=== PATIENT | female | born 1975 | race Caucasian/White ===

== ENCOUNTER 2019-05-30 23:24 | Emergency (ER) | payer BC ==
[~2019-05-30] VITALS: Ht 160 cm; Wt 95.3 kg
[2019-05-30 23:59] VITALS: Ht 160 cm; Wt 95.3 kg
[2019-05-31 01:33] LABS: BASOPHIL % 0.3 % (0-2); RED CELL DISTRIBUTION WIDTH 13.6 % (11.5-14.5)
[2019-05-31 01:37] LABS: PLATELET COUNT 412 x10^3mcL (130-400)
[2019-05-31 01:55] LABS: CARBON DIOXIDE 24.5 mmol/L (21-32); CHLORIDE SERUM 103 mmol/L (98-107); CREATININE SERUM 0.7 mg/dL (0.6-1.0); GFR1 > 60 mL/min; GLUCOSE SERUM 110 mg/dL (74-106); POTASSIUM SERUM 3.7 mmol/L (3.5-5.1); SODIUM SERUM 139 mmol/L (136-145)
[2019-05-31 01:59] LABS: ALBUMIN 3.9 g/dL (3.4-5.0); ALKALINE PHOSPHATASE 116 U/L (46-116); ALT/SGPT 45 U/L (14-59); AST/SGOT 42 U/L (15-37); BILIRUBIN TOTAL 0.4 mg/dL (0.20-1.00); LIPASE 65 IU/L (73-393)
[2019-05-31 04:32] VITALS: BP 143/77
== END 2019-05-31 04:32 | disposition home or self-care (01) ==
LOC: ED 23:24
PROVIDERS: Emergency Medicine
DX: K29.70 Gastritis, unspecified, without bleeding (principal); Z90.49 Acquired absence of other specified parts of digestive tract
CPT/HCPCS: 36415